=== PATIENT | female | born 1965 | race Caucasian/White ===

== ENCOUNTER → 2024-12-10 10:02 | Outpatient (REF) | payer OTHER, SELFPAY | LOC: DHSLP 10:02 | PROVIDERS: ATTENDING PHYSICIAN Family Medicine | DX: G47.33 Obstructive sleep apnea (adult) (pediatric) (principal) | CPT/HCPCS: 95800 ==

== ENCOUNTER → 2025-01-30 09:51 | Outpatient (REF) | payer OTHER, SELFPAY | LOC: HWRAD 09:51 | PROVIDERS: ATTENDING PHYSICIAN Family Medicine | DX: Z91.89 Other specified personal risk factors, not elsewhere classified (principal) | CPT/HCPCS: 77080 ==